=== PATIENT | male | born 1955 | race Caucasian/White ===

== ENCOUNTER → 2020-12-02 | Outpatient (CLI) | payer OTHER ==
[~2020-12-02] MED LIST: AUGMENTIN 875-1 EACH PO; KEFLEX CAP 500500 MG PO; NEURONTIN400 MG PO; OMEPRAZOLE20 MG PO; PERCOCET 5/325 T1 EA PO; PHENERGAN 25 MG25 M1 PO; SYNTHROID25 MCG PO; TENORMIN 25 MG25 MG PO; ZOFRAN4 MG PO
[2020-12-03 09:14] LABS: VITAMIN D, 25-HYDROXY 34.8 ng/mL (30.0-100.0)
[2020-12-03 11:14] LABS: COMPLEMENT C3, SERUM 123 mg/dL (82-167); COMPLEMENT C4, SERUM 22 mg/dL (12-38); RHEUMATOID ARTHRITIS FACTOR <10.0 IU/mL (0.0-13.9)
[2020-12-03 16:15] LABS: ANGIOTENSIN-CONVERTING ENZYME 62 U/L (14-82); TREPONEMA PALLIDUM ANTIBODIES Non Reactive (Non Reactive)
[2020-12-04 00:10] LABS: CCP ANTIBODIES IGG/IGA 4 units (0-19)
== END ==
LOC: LAB 14:47
PROVIDERS: Nurse Practitioner Family
DX: M79.673 Pain in unspecified foot (principal); M25.50 Pain in unspecified joint; M79.10 Myalgia, unspecified site; R53.83 Other fatigue; M32.9 Systemic lupus erythematosus, unspecified; R76.8 Other specified abnormal immunological findings in serum
CPT/HCPCS: 36415; 73630; 81001; 82164; 82550; 82570; 83520; 84156; 85652; 86140; 86160; 86162; 86200; 86431; 86780

== ENCOUNTER → 2021-04-12 | Outpatient (CLI) | payer OTHER ==
[2021-04-12 11:45] LABS: HEMOGLOBIN 14.3 gm/dl (14.0-17.5); RED BLOOD COUNT 4.78 M/UL (4.20-5.50); WHITE BLOOD COUNT 6.6 K/UL (4.5-11.0)
[2021-04-12 11:51] LABS: BUN/CREATININE RATIO 14 (0-10)
[2021-04-13 08:14] LABS: HBSAG SCREEN Negative (Negative); HCV AB <0.1 (0.0-0.9); HEP B CORE AB, TOT Negative (Negative)
== END ==
LOC: LAB 09:21
PROVIDERS: Internal Medicine
DX: L40.50 Arthropathic psoriasis, unspecified (principal); Z79.899 Other long term (current) drug therapy
CPT/HCPCS: 80053; 85025; 85652; 86140; 86704; 86803; 87340

== ENCOUNTER → 2021-04-19 | Outpatient (CLI) | payer OTHER | LOC: KOH-I 10:01 | DX: M47.26 Other spondylosis with radiculopathy, lumbar region (principal) | CPT/HCPCS: 72148 ==

== ENCOUNTER → 2021-05-25 | Outpatient (CLI) | payer OTHER ==
[~2021-05-25] MED LIST changes: +FLONASE ALLER15.8 ML; +IBU600 MG PO; -NEURONTIN400 MG PO; +NEURONTIN600 MG PO; +NEXIUM40 MG PO; +OXYCODONE HCL10 MG PO; -PERCOCET 5/325 T1 EA PO; -SYNTHROID25 MCG PO; +SYNTHROID50 MCG PO; +TRULANCE3 MG PO
[2021-05-25 11:16] LABS: HEMOGLOBIN 14.6 gm/dl (14.0-17.5); RED BLOOD COUNT 4.93 M/UL (4.20-5.50)
[2021-05-25 11:29] LABS: BUN/CREATININE RATIO 17 (0-10)
== END ==
LOC: OPSV2 10:00 → EDSTATUS 10:00 → OPSV2 10:08
PROVIDERS: Orthopaedic Surgery
DX: Z01.818 Encounter for other preprocedural examination (principal); M47.26 Other spondylosis with radiculopathy, lumbar region
CPT/HCPCS: 36415; 71046; 80048; 81001; 83036; 85025; 87081; 93005

== ENCOUNTER → 2021-06-07 | Outpatient (CLI) | payer OTHER ==
[2021-06-07 13:28] LABS: BUN/CREATININE RATIO 12 (0-10)
== END ==
LOC: LAB 11:42
PROVIDERS: Orthopaedic Surgery
DX: Z01.812 Encounter for preprocedural laboratory examination (principal); M54.16 Radiculopathy, lumbar region
CPT/HCPCS: 36415; 80048; 86850; 86900; 86901

== ENCOUNTER → 2021-06-08 | Day surgery (SDC) | payer OTHER | END | disposition home or self-care (01) | LOC: OR 05:35 | DX: M48.061 Spinal stenosis, lumbar region without neurogenic claudication (principal); M47.26 Other spondylosis with radiculopathy, lumbar region; M89.38 Hypertrophy of bone, other site; I10 Essential (primary) hypertension; E78.5 Hyperlipidemia, unspecified; G47.30 Sleep apnea, unspecified; K21.9 Gastro-esophageal reflux disease without esophagitis; E03.9 Hypothyroidism, unspecified; Z79.1 Long term (current) use of non-steroidal anti-inflammatories (NSAID); Z79.899 Other long term (current) drug therapy | CPT/HCPCS: 72110; 76000; J0690; J1040; J1170; J2001; J2250; J2405; J2704; J3010; J3370; J7040; J7120 ==